=== PATIENT | female | born 1945 | race Caucasian/White ===

== ENCOUNTER 2018-01-16 00:01 | Emergency (ER) | payer MEDICAID ==
[2018-01-16] MEDS: FAMOTIDINE 20 MG INJ IV (01:00)
[2018-01-16] MEDS: ONDANSETRON 4 MG INJ IV (01:00)
[2018-01-16] MEDS: HYDROmorphONE 1 MG/ML SYG IV (01:00)
[2018-01-16] MEDS: LIDOCAINE/MYLANTA 40 ML BTL PO (01:00)
[2018-01-16 01:09] LABS: WHITE BLOOD COUNT 8.9 10^3/ul (4.8-10.8)
[2018-01-16 01:09] LABS: ADD MAN DIFF? NO; HEMATOCRIT 38.2 % (37.0-47.0); HEMOGLOBIN 13.1 g/dl (12.0-16.0); MEAN CORPUSCULAR HEMOGLOBIN 29.2 pg (29.0-33.0); MEAN CORPUSCULAR HGB CONC 34.3 g/dl (32.0-37.0); MEAN CORPUSCULAR VOLUME 85.3 fl (82.0-101.0); MEAN PLATELET VOLUME 10.3 fl (7.4-10.4); PLATELET COUNT 262 10^3/UL (140-415); RED BLOOD COUNT 4.48 10^6/ul (4.20-5.40); RED CELL DISTRIBUTION WIDTH 12.6 % (11.5-14.5)
[2018-01-16 01:10] LABS: BASOPHIL # 0.1 10^3/ul (0.0-0.1); BASOPHILS % 0.6 % (0.0-2.0); EOSINOPHILS # 0.2 10^3/ul (0.0-0.5); EOSINOPHILS % 2.3 % (0.0-7.0); LYMPHOCYTES # 4.5 10^3/ul (0.8-2.9); LYMPHOCYTES % 50.3 % (15.0-51.0); MONOCYTE # 0.7 10^3/ul (0.3-0.9); MONOCYTES % 7.3 % (0.0-11.0); NEUTROPHIL # 3.5 10^3/ul (1.6-7.5); NEUTROPHILS % 39.3 % (39.0-77.0)
[2018-01-16 01:29] LABS: ALANINE AMINOTRANSFERASE 29 IU/L (13-69); ALBUMIN 4.5 g/dl (3.3-4.9); ALBUMIN/GLOBULIN RATIO 1.28; ALKALINE PHOSPHATASE 95 IU/L (42-121); ANION GAP 11 (8-16); ASPARTATE AMINO TRANSFERASE 27 IU/L (15-46); BILIRUBIN,INDIRECT 0.3 mg/dl (0-1.1); BILIRUBIN,TOTAL 0.3 mg/dl (0.2-1.3); BLOOD UREA NITROGEN 19 mg/dl (7-20); CALCIUM 9.6 mg/dl (8.4-10.2); CARBON DIOXIDE 28 mmol/L (21-31); CHLORIDE 103 mmol/L (97-110); GLUCOSE 205 mg/dl (70-220); LIPASE 216 U/L (23-300); POTASSIUM 3.6 mmol/L (3.5-5.1); SODIUM 138 mmol/L (135-144)
[2018-01-16] MEDS: IOHEXOL 300MG/ML 150 ML BTL (02:10)
[2018-01-16] MEDS: SOD CHLORIDE 0.9% 100 ML (02:10)
== END 2018-01-16 04:10 | disposition home or self-care (01) ==
LOC: E/R 00:01
DX: R10.13 Epigastric pain (principal); I10 Essential (primary) hypertension; E11.9 Type 2 diabetes mellitus without complications; R11.0 Nausea
CPT/HCPCS: 36415; 74177; 80053; 83690; 85025; 96374; 96375; 99285-25

== ENCOUNTER 2019-01-06 19:24 | Emergency (ER) | payer SELFPAY, MEDICAID ==
[2019-01-06] MEDS: LIDOCAINE/MYLANTA 40 ML BTL PO (22:00)
[2019-01-06] MEDS: BELLADONNA/PHENOBARBITAL TAB PO (22:00)
[2019-01-06] MEDS: ONDANSETRON 4 MG INJ IV (22:00)
[2019-01-06] MEDS: SOD CHLORIDE 0.9% 1,000 ML IV (22:00)
[2019-01-06 22:01] LABS: ADD MAN DIFF? NO
[2019-01-06] MEDS: MECLIZINE 12.5 MG TAB PO (22:01)
[2019-01-06 22:04] LABS: BASOPHIL # 0.1 10^3/ul (0.0-0.1); BASOPHILS % 0.7 % (0.0-2.0); EOSINOPHILS # 0.2 10^3/ul (0.0-0.5); EOSINOPHILS % 2.2 % (0.0-7.0); HEMATOCRIT 38.1 % (37.0-47.0); HEMOGLOBIN 12.8 g/dl (12.0-16.0); LYMPHOCYTES # 3.6 10^3/ul (0.8-2.9); LYMPHOCYTES % 41.9 % (15.0-51.0); MEAN CORPUSCULAR HEMOGLOBIN 29.6 pg (29.0-33.0); MEAN CORPUSCULAR HGB CONC 33.6 g/dl (32.0-37.0); MEAN PLATELET VOLUME 9.4 fl (7.4-10.4); MONOCYTE # 0.6 10^3/ul (0.3-0.9); MONOCYTES % 6.8 % (0.0-11.0); NEUTROPHIL # 4.2 10^3/ul (1.6-7.5); NEUTROPHILS % 48.1 % (39.0-77.0); PLATELET COUNT 228 10^3/UL (140-415); RED BLOOD COUNT 4.33 10^6/ul (4.20-5.40); RED CELL DISTRIBUTION WIDTH 11.9 % (11.5-14.5)
[2019-01-06 22:04] LABS: WHITE BLOOD COUNT 8.7 10^3/ul (4.8-10.8)
[2019-01-06 22:15] LABS: ALANINE AMINOTRANSFERASE 24 IU/L (13-69); ALBUMIN 4.5 g/dl (3.3-4.9); ALBUMIN/GLOBULIN RATIO 1.28; ALKALINE PHOSPHATASE 84 IU/L (42-121); AMYLASE 109 U/L (11-123); ANION GAP 10 (5-13); ASPARTATE AMINO TRANSFERASE 30 IU/L (15-46); BILIRUBIN,INDIRECT 0.5 mg/dl (0-1.1); BILIRUBIN,TOTAL 0.5 mg/dl (0.2-1.3); BLOOD UREA NITROGEN 17 mg/dl (7-20); CALCIUM 9.7 mg/dl (8.4-10.2); CARBON DIOXIDE 28 mmol/L (21-31); CHLORIDE 100 mmol/L (97-110); CREATININE 0.81 mg/dl (0.44-1.00); GLUCOSE 237 mg/dl (70-220); INR 0.89; LIPASE 165 U/L (23-300); POTASSIUM 3.8 mmol/L (3.5-5.1); PROTIME 12.1 Sec (11.9-14.9); PT RATIO 0.9; SODIUM 138 mmol/L (135-144)
[2019-01-06 22:16] LABS: PARTIAL THROMBOPLASTIN TIME 24.4 Sec (23.0-35.0)
[2019-01-06 22:26] LABS: TROPONIN-I < 0.012 ng/ml (0.000-0.120)
== END 2019-01-07 00:15 | disposition home or self-care (01) ==
LOC: E/R 01-07 00:15
DX: E11.65 Type 2 diabetes mellitus with hyperglycemia (principal); R42 Dizziness and giddiness
CPT/HCPCS: 80053; 82150; 82962; 83690; 84484; 85025; 85610; 85730; 93005; 96374; 99284-25